=== PATIENT | female | born 1985 | race Caucasian/White ===

== ENCOUNTER 2022-04-22 10:31 | Outpatient (REF) | payer OTHER, SELFPAY ==
[2022-04-22 11:06] LABS: MANUAL DIFF FLAG NO
[2022-04-22 11:22] LABS: Basophils Percent Auto 0.7 % (0-2); Eosinophils Absolute Auto 0.1 X10*3/uL (0.0-0.4); Eosinophils Percent Auto 1.2 % (0-4); Hematocrit 42.5 % (37.0-47.0); Hemoglobin 14.2 g/dl (12.0-16.0); Imm Gran Abs Auto 0.01 X10*3/uL (0.00-0.03); Imm Gran Pct Auto 0.2 % (0.0-0.4); Mean Corpuscular HGB Conc 33.4 g/dl (31.0-35.0); Mean Corpuscular Hemoglobin 31.8 pg (27.0-33.0); Mean Corpuscular Volume 95.3 fL (80.0-98.0); Mean Platelet Volume 10.6 fL (9.4-12.3); Monocytes Absolute Auto 0.5 X10*3/uL (0.1-1.2); Monocytes Percent Auto 8.1 % (2-11); Neutrophils Absolute Auto 3.5 x10*3/uL (2.0-8.3); Neutrophils Percent Auto 56.8 % (45-73); Platelet Count 253 X10*3/uL (160-400); Red Blood Count 4.46 X10*6/uL (4.20-5.50); Red Cell Distribution Width 12.7 % (11.0-16.0); White Blood Count 6.1 X10*3/uL (4.8-10.8)
[2022-04-22 12:05] LABS: Estimated Average Glucose 85 mg/dL; Hemoglobin A1c % 4.6 %
[2022-04-22 12:10] LABS: Erythrocyte Sedimentation Rate 2 MM/HR (0-20)
[2022-04-22 13:15] LABS: Syphilis Screen Nonreactive (Nonreactive)
[2022-04-22 14:32] LABS: Alanine Aminotransferase 17 U/L (0-31); Albumin Level 4.1 g/dL (3.5-5.0); Alkaline Phosphatase 48 U/L (39-117); Anion Gap 13 (12-20); Aspartate Amino Transferase 21 U/L (5-31); Bilirubin Total 0.6 mg/dL (0.0-1.0); Blood Urea Nitrogen 10 mg/dL (9-16); C Reactive Protein 0.33 mg/dL (< or = 0.50); Calcium 9.1 mg/dL (8.4-10.2); Carbon Dioxide 23 mmol/L (22-29); Chloride 105 mmol/L (96-108); Estimated Glomerular Filt Rate > 60; Glucose Random 98 mg/dL (60-115); Potassium 4.2 mmol/L (3.3-5.1); Sodium 137 mmol/L (135-145); TSH reflex Free T4 0.82 uIU/mL (0.32-4.0); Total Protein 6.9 g/dL (6.5-8.0)
[2022-04-22 14:33] LABS: Appearance Urine Clear; Color Urine Yellow; Glucose Urine UA Negative (Negative); Leukocyte Esterase Urine Negative (Negative); Nitrite Urine Negative (Negative); Specific Gravity - Urine 1.015 (1.005-1.025); Urine Blood Negative (Negative); Urine Ketones Negative (Negative); Urine Protein Negative (Neg-Trace)
[2022-04-22 14:36] LABS: Bacteria Urine None Seen (None Seen); Hyaline Casts Urine 0-2 /LPF (0-2); Squamous Epithelial Cell Urine 0-2 /HPF (0-2)
[2022-04-22 15:05] LABS: Creatinine Urine 79.09 mg/dL; Total Protein Urine Random < 7 mg/dL (<12)
[2022-04-25 11:58] LABS: Complement C3 98 mg/dL (83-193)
[2022-04-25 13:59] LABS: Thyroglobulin Antibodies <1 IU/mL (< or = 1); Thyroid Peroxidase Antibodies 1 IU/mL (<9)
[2022-04-26 10:34] LABS: Anti Nuclear Antibody Screen POSITIVE (NEGATIVE)
[2022-04-26 12:45] LABS: Prot Elec - Alpha1 0.3 g/dL (0.2-0.3); Prot Elec - Alpha2 0.7 g/dL (0.5-0.9); Prot Elec - Beta 1 0.6 g/dL (0.4-0.6); Prot Elec - Beta 2 0.4 g/dL (0.2-0.5); Prot Elec - Total Protein 6.9 g/dL (6.1-8.1)
[2022-04-26 15:24] LABS: IgA 382 mg/dL (47-310); IgG 939 mg/dL (600-1640); IgM 158 mg/dL (50-300)
[2022-04-26 19:38] LABS: TS Negative Control Passed; TS Panel A 0; TS Panel B 0; TS Positive Control Passed; TSpotTB Negative (Negative)
[2022-04-27 05:34] LABS: HBS Num1 33.68 mIU/mL (0-7.99); HBc Num1 0.06 S/CO (0.00-0.79); Hepatitis A Antibody IgM 0.21 Index (0-0.79); Hepatitis B Core Antibody Nonreactive (Nonreactive); ~HepC Num1 0.14 S/CO (0.00-0.79); ~Hepatitis A Antibody IgM Nonreactive (Nonreactive); ~Hepatitis B Surface Antibody REACTIVE (Nonreactive); ~Hepatitis C Antibody Nonreactive (Nonreactive)
[2022-04-27 06:08] LABS: HBsAGNum1 0.24 S/CO (0.00-0.99); Hepatitis B Surface Antigen Negative (Negative)
[2022-04-27 09:54] LABS: Anti DNA DS Antibody 2 IU/mL; Antibody to SS-A Antigen <1.0 NEG AI (<1.0 NEG); Antibody to SS-B Antigen <1.0 NEG AI (<1.0 NEG); Myeloperoxidase Antibody <1.0 AI; Proteinase 3 PR3 Antibodies <1.0 AI; SM/Ribonucleoprotein Ab <1.0 NEG AI (<1.0 NEG); Smith Protein <1.0 NEG AI (<1.0 NEG)
[2022-04-27 12:13] LABS: Cardiolipin IgG Ab <2.0 GPL-U/mL; Cardiolipin IgM Ab 3.2 MPL-U/mL
[2022-04-28 12:52] LABS: Angiotensin Converting Enzyme 28.1 U/L (9-67)
[2022-04-28 14:14] LABS: Beta-2 Glycoprotein IgA <2.0 U/mL (<20.0); Beta-2 Glycoprotein IgG <2.0 U/mL (<20.0); Beta-2 Glycoprotein IgM 2.7 U/mL (<20.0)
[2022-04-29 06:38] LABS: PTT (LAC) Screen 30 sec (<=40)
== END 2022-04-22 10:32 | disposition home or self-care (01) ==
LOC: HO.10HDL 10:31
PROVIDERS: Visit Provider Student in an Organized Health Care Education/Training Program
DX: R76.8 Other specified abnormal immunological findings in serum (principal); H20.9 Unspecified iridocyclitis; R53.83 Other fatigue; Z11.7 Encounter for testing for latent tuberculosis infection; Z11.59 Encounter for screening for other viral diseases; Z13.1 Encounter for screening for diabetes mellitus
CPT/HCPCS: 36415; 80053; 81001; 82164; 82550; 82784; 83036; 84156; 84165; 84443; 85025; 85597; 85613; 85652; 85730; 86021; 86038; 86039; 86140; 86146; 86147; 86160; 86225; 86235; 86334; 86376; 86481; 86704; 86706; 86709; 86780; 86800; 86803; 87340

== ENCOUNTER → 2022-05-19 12:54 | Outpatient (BNVA) | payer OTHER, SELFPAY | PROVIDERS: Visit Provider Student in an Organized Health Care Education/Training Program | DX: Z13.89 Encounter for screening for other disorder (principal) ==

== ENCOUNTER 2022-09-29 08:38 | Outpatient (REF) | payer OTHER, SELFPAY ==
[2022-09-29 08:57] LABS: MANUAL DIFF FLAG NO
[2022-09-29 09:23] LABS: Basophils Percent Auto 0.7 % (0-2); Eosinophils Absolute Auto 0.2 X10*3/uL (0.0-0.4); Eosinophils Percent Auto 2.8 % (0-4); Hematocrit 41.6 % (37.0-47.0); Hemoglobin 14.1 g/dl (12.0-16.0); Imm Gran Abs Auto 0.02 X10*3/uL (0.00-0.03); Imm Gran Pct Auto 0.3 % (0.0-0.4); Lymphocytes Absolute Auto 2.2 X10*3/uL (1.2-4.9); Lymphocytes Percent Auto 36.6 % (20-40); Mean Corpuscular HGB Conc 33.9 g/dl (31.0-35.0); Mean Corpuscular Hemoglobin 32.2 pg (27.0-33.0); Mean Platelet Volume 10.3 fL (9.4-12.3); Monocytes Absolute Auto 0.5 X10*3/uL (0.1-1.2); Monocytes Percent Auto 7.7 % (2-11); Neutrophils Absolute Auto 3.2 x10*3/uL (2.0-8.3); Neutrophils Percent Auto 51.9 % (45-73); Platelet Count 236 X10*3/uL (160-400); Red Blood Count 4.38 X10*6/uL (4.20-5.50); Red Cell Distribution Width 12.4 % (11.0-16.0); White Blood Count 6.1 X10*3/uL (4.8-10.8)
[2022-09-29 10:03] LABS: Alanine Aminotransferase 23 U/L (0-31); Albumin Level 3.8 g/dL (3.5-5.0); Alkaline Phosphatase 40 U/L (39-117); Anion Gap 12 (12-20); Aspartate Amino Transferase 21 U/L (5-31); Bilirubin Total 0.7 mg/dL (0.0-1.0); Blood Urea Nitrogen 10 mg/dL (9-16); Calcium 9.3 mg/dL (8.4-10.2); Carbon Dioxide 25 mmol/L (22-29); Chloride 107 mmol/L (96-108); Estimated Glomerular Filt Rate > 60; Glucose Random 104 mg/dL (60-115); Potassium 4.7 mmol/L (3.3-5.1); Sodium 139 mmol/L (135-145); Total Protein 6.5 g/dL (6.5-8.0)
[2022-09-29 10:20] LABS: Erythrocyte Sedimentation Rate 2 MM/HR (0-20)
[2022-09-29 10:28] LABS: Appearance Urine Clear; Color Urine Yellow; Glucose Urine UA Negative (Negative); Leukocyte Esterase Urine Moderate (2+) (Negative); Nitrite Urine Negative (Negative); PH 6.5 (5.0-9.0); Specific Gravity - Urine 1.015 (1.005-1.025); UMIC TRIGGER UA YES; Urine Blood Negative (Negative); Urine Ketones Negative (Negative); Urine Protein Negative (Neg-Trace)
[2022-09-29 10:38] LABS: Bacteria Urine 1+ (None Seen); Hyaline Casts Urine 0-2 /LPF (0-2); RBC Urine 0-2 /HPF (0-2); WBC Urine 0-5 /HPF (0-5)
[2022-09-29 11:27] LABS: Creatinine Urine 81.97 mg/dL; Total Protein Urine Random < 7 mg/dL (<12)
[2022-10-04 21:58] LABS: Anti DNA DS Antibody 2 IU/mL
[2022-10-05 18:39] LABS: Complement C3 102 mg/dL (83-193)
== END 2022-09-29 08:39 | disposition home or self-care (01) ==
LOC: HO.LAB 08:38
PROVIDERS: Visit Provider Student in an Organized Health Care Education/Training Program
DX: M32.9 Systemic lupus erythematosus, unspecified (principal)
CPT/HCPCS: 36415; 80053; 81001; 84156; 85025; 85652; 86140; 86160; 86225

== ENCOUNTER 2022-10-11 15:20 | Outpatient (REF) | payer OTHER, SELFPAY ==
--- NOTE | ~2022-10-11 | US_ITS ---
EXAMINATION: US SOFT TISSUE NECK CLINICAL INFORMATION: Localized enlarged lymph nodes. COMPARISON: None available. TECHNIQUE: Ultrasound of the neck soft tissues is performed with high- frequency kowalski-scale imaging and color Doppler. FINDINGS: RIGHT NECK SOFT TISSUES: Scattered architecturally normal nodes are present. The nodes show normal fatty hilus, normal cortical thickness, and no cystic change or calcification. No abnormal color flow. The largest nodes are as follows: Level 1B: 1.3 x 0.6 x 1.4 cm. Normal tadeo architecture. Level 2: 2.0 x 0.7 x 1.6 cm. Abnormal tadeo architecture, with poor corticomedullary differentiation. Level 3: 2.0 x 0.6 x 1.6 cm. Abnormal tadeo architecture, with poor corticomedullary differentiation. Level 4: 2.6 x 0.4 x 1.2 cm. Normal tadeo architecture. LEFT NECK SOFT TISSUES: Scattered architecturally normal nodes are present. The nodes show normal fatty hilus, normal cortical thickness, and no cystic change or calcification. No abnormal color flow. The largest nodes are as follows: Level 2: 1.8 x 0.5 x 1.3 cm. Normal tadeo architecture. Level 3: 2.0 x 0.4 x 1.1 cm. Abnormal tadeo architecture, with poor corticomedullary differentiation. US/US soft tiss head and/or neck IMPRESSION: Multiple mildly enlarged bilateral cervical lymph nodes are seen, as detailed. Some show poor corticomedullary differentiation. These are nonspecific and may be reactive. They should be managed on a clinical basis. If of continued clinical concern, consider short-term follow-up ultrasound imaging in 3-6 months to ensure stability/regression.
== END 2022-10-11 15:21 | disposition home or self-care (01) ==
LOC: HO.HMGCX 15:20
PROVIDERS: PCP Nurse Practitioner Family; Visit Provider Student in an Organized Health Care Education/Training Program
DX: R59.0 Localized enlarged lymph nodes (principal)
CPT/HCPCS: 76536

== ENCOUNTER 2023-01-05 14:25 | Outpatient (REF) | payer OTHER, SELFPAY ==
--- NOTE | ~2023-01-05 | US_ITS ---
Ultrasound-guided biopsy of the enlarged cervical lymph nodes in the right side of the neck INDICATIONS: Persistent cervical adenopathy relatively unchanged compared to the previous ultrasound exam dated 10/11/2022 After informed and written consent was obtained an official timeout was performed immediately prior to the procedure. PROCEDURE: The skin was prepped and draped in usual fashion. 1% Xylocaine was used for local anesthetic. Under ultrasound guidance the enlarged cervical lymph node in the right paracervical region measuring 0.68 x 1.4 x 2.1 cm in size was biopsied utilizing a 25-gauge needle. 4 passes were obtained. The Specimens were analyzed by the pathology department and felt to be adequate for diagnostic purposes. US/US biopsy lymph node Impression: Ultrasound-guided biopsy of one of the lymph nodes in the right paracervical region
[2023-01-05] MEDS: Lidocaine HCl 1 % MPF 5 ML VIAL SUBCUT (16:11)
== END 2023-01-05 14:26 | disposition home or self-care (01) ==
LOC: HO.US 14:25
PROVIDERS: Radiology Vascular & Interventional Radiology; PCP Nurse Practitioner Family; Visit Provider Student in an Organized Health Care Education/Training Program
DX: R59.0 Localized enlarged lymph nodes (principal)
CPT/HCPCS: 36415; 38505; 76942; 88172; 88173; 88184; 88185

== ENCOUNTER → 2023-01-05 14:27 | Outpatient (BNV) | payer OTHER, SELFPAY | PROVIDERS: PCP Nurse Practitioner Family; Visit Provider Radiology Vascular & Interventional Radiology | DX: R59.0 Localized enlarged lymph nodes (principal) | CPT/HCPCS: 38505; 76942 ==

== ENCOUNTER 2023-01-19 09:19 | Outpatient (AMB) | payer OTHER, SELFPAY ==
[2023-01-19 09:21] VITALS: BP 122/64; PULSE 73; TEMP 36.6; O2SAT 97; BMI 24.2
--- NOTE | 2023-01-19 09:21 | A.OFFVIS_ITS ---
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 Accompanied by: Self / Same As Patient Allergies acetaminophen [From Vicodin] Adverse Reaction (Unknown, Verified 01/19/23 09:24) Rash hydrocodone [From Vicodin] Adverse Reaction (Unknown, Verified 01/19/23 09:24) Rash Medication List - Last Reconciled 01/19/23 by Nicolasa Marvin MD azelaic acid 15% topical bupropion HCl 150 mg PO QAM escitalopram oxalate 10 mg PO DAILY mecobalamin (vitamin B12) 1,000 mcg PO DAILY norethindrone ac-eth estradiol 1-20 mg-mcg (Junel) 1 tab PO DAILY sulfacetamide sodium-sulfur 10-5 % (w/w) topical trazodone 25 - 50 mg PO BEDTIME PRN HPI HPI Comments History of Present Illness Details 37-year-old female with positive JORDAN ret urns for follow-up. In September patient had palpable right neck lymph nodes, she had ultrasound-guided biopsy of a right cervical lymph nodes which showed a high CD4 to CD8 ratio without features of malignancy. Patient states that the lymph node continues to get bigger, she gets night sweats for a few days at a time and they self resolve, she gets intermittent painful canker sores. Initial history: This is a 36-year-old female with a past medical history of anxiety/depression presents for evaluation of a positive JORDAN 1-320. The condition started a few years ago when patient had an episode of iritis. At that time she was evaluated and had positive Lyme serology. She was started on doxycycline with significant improvement of her symptoms. She also gets eyedrops (neomycin +polymyxin + dexamethasone) with resolution of her iritis in a few days. Over the last 4 years patient has had multiple flares of fatigue, chills, arthralgias, lymphadenopathy, this would be associated with an attack of iritis. Repeated Lyme testing is positive and patient usually would get a course of doxycycline with improvement of her symptoms. She stated she has had about 8 attacks of iritis over the last 4 years. Last flare was in January of 2022. When she had another attack of iritis she also had other symptoms such as fatigue, joint pain. She also had herpes zoster affecting her right neck which resolved with antivirals. [facility] Medical History (Updated 01/19/23 @ 09:52 by Nicolasa Marvin MD) Multiple joint pain Vertigo Lyme disease Costal chondritis Insomnia Depressive disorder Cystic acne Anxiety Surgical History History of tonsillectomy No history of previous surgery Social History Household Members: Significant Other and Other Alcohol intake: current Alcohol intake frequency: a few times a week Current occupation: [employer] ENT Details: +ve mouth sores Card Reports no additional complaints Details: no froth in urine Musc Details: rib pain Lamin/Lymph Reports lymphadenopathy Physical Exam Vital Signs: Last Vital Signs Temp 97.9 F 01/19/23 09:21 Pulse 73 01/19/23 09:21 BP 122/64 01/19/23 09:21 Pulse Ox 97 01/19/23 09:21 BMI result Body Mass Index 24.2 Const General: cooperative, healthy appearing, comfortable and no acute distress Nutritional Appearance: average body habitus Orientation/consciousness: patient oriented x3 Limitations: no limitations HEENT Head: Yes normocephalic and Yes atraumatic Neck Other: Palpable bilateral cervical lymph nodes Resp Effort & Inspection: normal respiratory effort and able to speak in complete sentences Skin Other: Rosacea on face Neuro General: patient oriented x3 Extrem Other: No active synovitis Normal nailfold capillaroscopy Assessment & Plan Assessment & Plan (1) JORDAN positive: Code(s): R76.8 - Other specified abnormal immunological findings in serum Plan: This is a 37-year-old female who presents for evaluation of 4 year history of recurrent episodes of keratitis fatigue, skin rashes, joint pain, chills, night sweats, Labs showed positive JORDAN 1-320 and 1-80 when repeated. These episodes were attributed to Lyme disease as her Lyme serology seems to be always positive.? Patient would get doxycycline courses with improvement.? Keratitis resolves with a (steroid plus antibiotic eyedrops)? In September patient had a palpable cervical lymph node, she had a lymph node biopsy which showed a high CD4 to CD8 ratio which can be a reactive lymph node but cannot exclude lymphomas Will refer patient to Hematology/Oncology given lymphadenopathy and night sweats. Plan I spent 15 minutes reviewing patient's chart, evaluating patient, ordering diagnostic workup, counseling patient and documenting in the chart Orders: Orders XR chest 2V Today R59.0 - Localized enlarged lymph nodes Referrals Hematology & Oncology Referral R59.0 - Localized enlarged lymph nodes Coding Level of Care Code Est Pt Level 3 (75060) Diagnoses JORDAN positive R76.8
== END 2023-01-19 09:45 | disposition home or self-care (01) ==
PROVIDERS: PCP Nurse Practitioner Family; Visit Provider Student in an Organized Health Care Education/Training Program
DX: R76.8 Other specified abnormal immunological findings in serum (principal)
CPT/HCPCS: 99213

== ENCOUNTER → 2023-01-19 09:19 | Outpatient (BNVA) | payer OTHER, SELFPAY | PROVIDERS: PCP Nurse Practitioner Family; Visit Provider Student in an Organized Health Care Education/Training Program ==

== ENCOUNTER → 2023-05-31 09:20 | Outpatient (BNV) | payer OTHER, SELFPAY | PROVIDERS: PCP Nurse Practitioner Family; Visit Provider Internal Medicine | DX: R59.0 Localized enlarged lymph nodes (principal) | CPT/HCPCS: 99213 ==

== ENCOUNTER 2023-08-15 15:52 | Outpatient (AMB) | payer OTHER, SELFPAY ==
[2023-08-15 15:55] VITALS: BP 122/64; PULSE 69; O2SAT 97; BMI 25.1
--- NOTE | 2023-08-15 15:55 | A.OFFVIS_ITS ---
Intake Vital Signs 08/15/23 15:55 Height 5 ft 7 in Weight 160 lb 4.417 oz BMI 25.1 BP 122/64 Blood Pressure Location Rt brachial Position Sitting Pulse 69 Pulse Source Pulse Oximeter Pulse Oximetry (%) 97 Oxygen Delivery Method Room Air Intake Visit Reasons: JORDAN +ve/lm Intake Note: Patient last seen 01/19/23 presents today for follow up. 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[facility] [employer] Required: No Accompanied by: Self / Same As Patient Allergies acetaminophen [From Vicodin] Adverse Reaction (Unknown, Verified 08/15/23 15:56) Rash hydrocodone [From Vicodin] Adverse Reaction (Unknown, Verified 08/15/23 15:56) Rash Medication List - Last Reconciled 08/15/23 by Nicolasa Marvin MD azelaic acid 15% 15 ea topical DAILY bupropion HCl XL 150 mg PO QAM doxycycline hyclate 20 mg PO BID escitalopram oxalate 10 mg PO BID norethindrone ac-eth estradiol 1-20 mg-mcg (Junel) 1 tab PO DAILY sulfacetamide sodium-sulfur 10-5 % (w/w) 10 grams topical DAILY trazodone 25 - 50 mg PO BEDTIME PRN HPI HPI Comments History of Present Illness Details 37-year-old female with positive JORDAN ret urns for follow-up. Patient states that she has been doing fairly well overall. She states that she had Dougie episode of abrupt onset of chest pain. She was prescribed prednisone. She took for 3 days with rapid resolution of symptoms. She was recently evaluated by an cafe worker and was diagnosed with ocular rosacea. She has been doing fairly well otherwise Initial history: This is a 36-year-old female with a past medical history of anxiety/depression presents for evaluation of a positive JORDAN 1-320. The condition started a few years ago when patient had an episode of iritis. At that time she was evaluated and had positive Lyme serology. She was started on doxycycline with significant improvement of her symptoms. She also gets eyedrops (neomycin +polymyxin + dexamethasone) with resolution of her iritis in a few days. Over the last 4 years patient has had multiple flares of fatigue, chills, arthralgias, lymphadenopathy, this would be associated with an attack of iritis. Repeated Lyme testing is positive and patient usually would get a course of doxycycline with improvement of her symptoms. She stated she has had about 8 attacks of iritis over the last 4 years. Last flare was in January of 2022. When she had another attack of iritis she also had other symptoms such as fatigue, joint pain. She also had herpes zoster affecting her right neck which resolved with antivirals. [facility] Medical History Multiple joint pain Vertigo Lyme disease Costal chondritis Insomnia Depressive disorder Cystic acne Anxiety Surgical History History of tonsillectomy No history of previous surgery Family History Maternal Aunt Breast cancer Father Prostate cancer Social History Household Members: Significant Other and Other Alcohol intake: current Alcohol intake frequency: a few times a week Patient Tobacco Use Status: Former Tobacco user service: No Current occupational status: employed Current occupation: [employer] Reports arthralgias Physical Exam Vital Signs: Last Vital Signs Pulse 69 08/15/23 15:55 BP 122/64 08/15/23 15:55 Pulse Ox 97 08/15/23 15:55 Oxygen Delivery Method Room Air 08/15/23 15:55 BMI result Body Mass Index 25.1 Const General: cooperative, healthy appearing, comfortable and no acute distress Nutritional Appearance: average body habitus Orientation/consciousness: patient oriented x3 Limitations: no limitations HEENT Head: Yes normocephalic and Yes atraumatic Resp Effort & Inspection: normal respiratory effort and able to speak in complete sentences Skin Other: Rosacea on face Neuro General: patient oriented x3 Extrem Other: No active synovitis Normal nailfold capillaroscopy Assessment & Plan Assessment & Plan (1) JORDAN positive: Code(s): R76.8 - Other specified abnormal immunological findings in serum Plan: This is a 37-year-old female who presents for evaluation of 4 year history of recurrent episodes of keratitis fatigue, skin rashes, joint pain, chills, night sweats, Labs showed positive JORDAN 1-320 and 1-80 when repeated. These episodes were attributed to Lyme disease as her Lyme serology seems to be always positive.? Patient would get doxycycline courses with improvement.? Keratitis resolves with a (steroid plus antibiotic eyedrops)? Patient was recently diagnosed with ocular rosacea In 2022 patient had cervical lymphadenopathy. Biopsy was inconclusive. She was evaluated by heme/Onc and the results were nonspecific and no further management was needed Patient states that she gets intermittent episodes of joint pain, sometimes it affects her chest. These occur about once every 6 months, last time this occurred she took prednisone with rapid resolution. We discussed potentially starting hydroxychloroquine for UCTD. Patient would like to hold off. This point, will prescribe prednisone mg tablets. Can take 1-2 tablets as needed for flare-ups. Advised patient to keep a log of her flare-ups Labs before next visit in 6 months Plan I spent 25 minutes reviewing patient's chart, evaluating patient, ordering diagnostic workup, counseling patient and documenting in the chart Orders: Orders Anti DNA DS Antibody 6 Months M32.9 - Systemic lupus erythematosus, unspecified Complement C3 6 Months M32.9 - Systemic lupus erythematosus, unspecified Complement C4 6 Months M32.9 - Systemic lupus erythematosus, unspecified Protein Creatinine Ratio, Ur 6 Months M32.9 - Systemic lupus erythematosus, unspecified UA w Microscopic 6 Months M32.9 - Systemic lupus erythematosus, unspecified Immunofixation Pnl, Serum 6 Months M32.9 - Systemic lupus erythematosus, u nspecified Protein Electrophoresis, Serum 6 Months M32.9 - Systemic lupus erythematosus, unspecified DNA Double Stranded-Crithidia 6 Months M32.9 - Systemic lupus erythematosus, unspecified Erythrocyte Sedimentation Rate 6 Months M32.9 - Systemic lupus erythematosus, unspecified Complete Blood Count Auto Diff 6 Months M32.9 - Systemic lupus erythematosus, unspecified Comprehensive Met. Panel 6 Months M32.9 - Systemic lupus erythematosus, unspecified Medications: New prednisone 10 mg PO DAILY PRN 30 tabs 0RF joint pain Coding Level of Care Code Est Pt Level 4 (98627) Diagnoses JORDAN positive R76.8
== END 2023-08-15 16:21 | disposition home or self-care (01) ==
PROVIDERS: PCP Nurse Practitioner Family; Visit Provider Student in an Organized Health Care Education/Training Program
DX: R76.8 Other specified abnormal immunological findings in serum (principal)
CPT/HCPCS: 99214

== ENCOUNTER → 2023-08-15 15:52 | Outpatient (BNVA) | payer OTHER, SELFPAY | PROVIDERS: PCP Nurse Practitioner Family; Visit Provider Student in an Organized Health Care Education/Training Program ==

== ENCOUNTER 2024-02-02 07:17 | Outpatient (REF) | payer OTHER, SELFPAY ==
--- NOTE | ~2024-02-02 | XR_ITS ---
EXAMINATION: XR STERNOCLAVICULAR JOINTS CLINICAL INFORMATION: R07.9 - Chest pain, unspecified COMPARISON: None available. TECHNIQUE: AP and oblique views of the sternoclavicular joints. FINDINGS: Alignment of the sternoclavicular joints is normal and symmetric. The clavicle is intact. No fracture. Bones and soft tissues are normal. XR/XR sternoclavicular joint BI IMPRESSION: Normal sternoclavicular joints. Electronically signed by: Yovanny Jackson MD 04/11/2024 12:50 PM EST
== END 2024-02-02 07:18 | disposition home or self-care (01) ==
LOC: HO.XRAY 07:17
PROVIDERS: PCP Nurse Practitioner Family; Visit Provider Student in an Organized Health Care Education/Training Program
DX: R07.9 Chest pain, unspecified (principal)
CPT/HCPCS: 71130

== ENCOUNTER → 2024-02-02 07:22 | Outpatient (BNV) | payer OTHER, SELFPAY | PROVIDERS: PCP Nurse Practitioner Family; Visit Provider Radiology Diagnostic Radiology | DX: R07.9 Chest pain, unspecified (principal) | CPT/HCPCS: 71130 ==

== ENCOUNTER 2024-02-05 14:56 | Outpatient (REF) | payer OTHER, SELFPAY ==
[2024-02-05 15:10] LABS: MANUAL DIFF FLAG NO
[2024-02-05 15:32] LABS: Basophils Percent Auto 0.3 % (0-2); Eosinophils Absolute Auto 0.1 X10*3/uL (0.0-0.4); Eosinophils Percent Auto 0.7 % (0-4); Hematocrit 39.5 % (37.0-47.0); Hemoglobin 13.7 g/dl (12.0-16.0); Imm Gran Abs Auto 0.06 X10*3/uL (0.00-0.03); Imm Gran Pct Auto 0.5 % (0.0-0.4); Lymphocytes Absolute Auto 3.5 X10*3/uL (1.2-4.9); Lymphocytes Percent Auto 28.3 % (20-40); Mean Corpuscular HGB Conc 34.7 g/dl (31.0-35.0); Mean Corpuscular Hemoglobin 32.4 pg (27.0-33.0); Mean Corpuscular Volume 93.4 fL (80.0-98.0); Mean Platelet Volume 9.9 fL (9.4-12.3); Monocytes Absolute Auto 0.9 X10*3/uL (0.1-1.2); Monocytes Percent Auto 7.4 % (2-11); Neutrophils Absolute Auto 7.7 x10*3/uL (2.0-8.3); Neutrophils Percent Auto 62.8 % (45-73); Platelet Count 300 X10*3/uL (160-400); Red Blood Count 4.23 X10*6/uL (4.20-5.50); Red Cell Distribution Width 12.3 % (11.0-16.0); White Blood Count 12.4 X10*3/uL (4.8-10.8)
[2024-02-05 15:49] LABS: Appearance Urine Clear; Color Urine Yellow; Glucose Urine UA Negative (Negative); Leukocyte Esterase Urine Trace (Negative); Nitrite Urine Negative (Negative); Specific Gravity - Urine 1.015 (1.005-1.025); UMIC TRIGGER UA YES; Urine Blood Negative (Negative); Urine Ketones Negative (Negative); Urine Protein Negative (Neg-Trace)
[2024-02-05 15:53] LABS: Bacteria Urine None Seen (None Seen); Hyaline Casts Urine 0-2 /LPF (0-2); RBC Urine 0-2 /HPF (0-2); Squamous Epithelial Cell Urine 0-2 /HPF (0-2); WBC Urine 0-5 /HPF (0-5)
[2024-02-05 15:54] LABS: Alanine Aminotransferase 16 U/L (0-31); Albumin Level 3.9 g/dL (3.5-5.0); Alkaline Phosphatase 62 U/L (39-117); Anion Gap 13 (12-20); Aspartate Amino Transferase 17 U/L (5-31); Bilirubin Total 0.4 mg/dL (0.0-1.0); Blood Urea Nitrogen 17 mg/dL (9-16); Calcium 9.3 mg/dL (8.4-10.2); Carbon Dioxide 25 mmol/L (22-29); Chloride 105 mmol/L (96-108); Estimated Glomerular Filt Rate > 60; Glucose Random 94 mg/dL (60-115); Sodium 139 mmol/L (135-145); Total Protein 7.1 g/dL (6.5-8.0)
[2024-02-05 16:11] LABS: Creatinine Urine 68.56 mg/dL; Total Protein Urine Random < 7 mg/dL (<12)
[2024-02-05 16:13] LABS: Erythrocyte Sedimentation Rate 10 MM/HR (0-20)
[2024-02-06 15:38] LABS: Complement C3 110 mg/dL (83-193)
[2024-02-06 20:14] LABS: Anti DNA DS Antibody 1 IU/mL
[2024-02-07 12:28] LABS: Prot Elec - Albumin 3.9 g/dL (3.8-4.8); Prot Elec - Alpha1 0.3 g/dL (0.2-0.3); Prot Elec - Alpha2 0.8 g/dL (0.5-0.9); Prot Elec - Beta 1 0.5 g/dL (0.4-0.6); Prot Elec - Beta 2 0.4 g/dL (0.2-0.5); Prot Elec - Total Protein 6.8 g/dL (6.1-8.1)
[2024-02-07 21:58] LABS: IgA 419 mg/dL (47-310); IgG 1019 mg/dL (600-1640); IgM 165 mg/dL (50-300)
[2024-02-10 05:19] LABS: DNAds, Crithidia Antibody Negative (Negative)
== END 2024-02-05 14:57 | disposition home or self-care (01) ==
LOC: HO.LAB 14:56
PROVIDERS: PCP Nurse Practitioner Family; Visit Provider Student in an Organized Health Care Education/Training Program
DX: M32.9 Systemic lupus erythematosus, unspecified (principal)
CPT/HCPCS: 36415; 80053; 81001; 82570; 82784; 84156; 84165; 85025; 85652; 86160; 86225; 86255; 86334

== ENCOUNTER 2024-02-14 09:51 | Outpatient (AMB) | payer OTHER, SELFPAY ==
--- NOTE | 2024-02-14 09:53 | MHC.OFFVIS ---
Vital Signs 02/14/24 09:55 Height 5 ft 7 in Weight 154 lb 8.705 oz BMI 24.2 BP 100/72 Blood Pressure Location Rt brachial Position Sitting Pulse 69 Pulse Source Pulse Oximeter Pulse Oximetry (%) 99 Oxygen Delivery Method Room Air Intake Visit Reasons: UCTD/LM Intake Note: Patient presents for UCTD. Allergies acetaminophen [From Vicodin] Adverse Reaction (Unknown, Verified 02/14/24 09:55) Rash hydrocodone [From Vicodin] Adverse Reaction (Unknown, Verified 02/14/24 09:55) Rash Medication List - Last Reconciled 02/14/24 by Nicolasa Marvin MD azelaic acid 15% 15 ea topical DAILY bupropion HCl XL 150 mg PO QAM doxycycline hyclate 20 mg PO BID escitalopram oxalate 10 mg PO BID hydroxychloroquine Take 2 tabs daily x5 days a week and 1 tab daily x2 days a week norethindrone ac-eth estradiol 1-20 mg-mcg (June) 1 tab PO DAILY prednisone Take 3 tabs daily for 3 days, 2 tabs daily for 3 days then 1 tab daily for 5 days then stop Keep additional tabs to use as needed sulfacetamide sodium-sulfur 10-5 % (w/w) 10 grams topical DAILY trazodone 25 - 50 mg PO BEDTIME PRN HPI Comments Details: 38-year-old female with positive JORDAN returns for follow-up. Patient states that she had a flare-up of her eye condition as well as chest pains and night sweats for about a week back in September, she took ibuprofen 600 mg t.i.d. with resolution. She states that she was in [facility] last month and she had a cold followed by a flare-up of her condition, she was having eye inflammation, she did not have her eyedrops and she saw an eye doctor there, she was prescribed eyedrops with improvement, at that time she was also having chest pains, back pain, night sweats. He was taking NSAIDs without much improvement, when she came [place] the [place] she started taking prednisone 10 mg once daily about a week without much improvement. She continues to have the same symptoms Initial history: This is a 36-year-old female with a past medical history of anxiety/depression presents for evaluation of a positive JORDAN 1-320. The condition started a few years ago when patient had an episode of iritis. At that time she was evaluated and had positive Lyme serology. She was started on doxycycline with significant improvement of her symptoms. She also gets eyedrops (neomycin +polymyxin + dexamethasone) with resolution of her iritis in a few days. Over the last 4 years patient has had multiple flares of fatigue, chills, arthralgias, lymphadenopathy, this would be associated with an attack of iritis. Repeated Lyme testing is positive and patient usually would get a course of doxycycline with improvement of her symptoms. She stated she has had about 8 attacks of iritis over the last 4 years. Last flare was in January of 2022. When she had another attack of iritis she also had other symptoms such as fatigue, joint pain. She also had herpes zoster affecting her right neck which resolved with antivirals. [facility] Medical History Multiple joint pain Vertigo Lyme disease Costal chondritis Insomnia Depressive disorder Cystic acne Anxiety Surgical History History of tonsillectomy No history of previous surgery Family History Maternal Aunt Breast cancer Father Prostate cancer Social History Household Members: Significant Other and Other Alcohol intake: current Alcohol intake frequency: a few times a week Patient Tobacco Use Status: Former Tobacco user service: No Current occupational status: employed Current occupation: [employer] Systems Const Denies fever(s) and Reports night sweats Card Reports chest pain Physical Exam Vital Signs: Last Vital Signs Pulse 69 02/14/24 09:55 BP 100/72 02/14/24 09:55 Pulse Ox 99 02/14/24 09:55 Oxygen Delivery Method Room Air 02/14/24 09:55 BMI result Body Mass Index 24.2 Const General: cooperative, healthy appearing, comfortable and no acute distress Nutritional Appearance: average body habitus Orientation/consciousness: patient oriented x3 Limitations: no limitations HEENT Head: Yes normocephalic and Yes atraumatic Chest Other: Chest wall tenderness to palpate Resp Effort & Inspection: normal respiratory effort and able to speak in complete sentences Skin Other: Rosacea on face Neuro General: patient oriented x3 Extrem Other: No active synovitis Normal nailfold capillaroscopy Assessment & Plan Assessment & Plan (1) JORDAN positive: Code(s): R76.8 - Other specified abnormal immunological findings in serum Category: Medical Plan: This is a 38-year-old female who presents for evaluation of 4-5 year history of recurrent episodes of keratitis fatigue, skin rashes, joint pain, chills, night sweats, Labs showed positive JORDAN 1-320 and 1-80 when repeated. These episodes were attributed to Lyme disease as her Lyme serology seems to be always positive.? Patient would get doxycycline courses with improvement.? Keratitis resolves with a (steroid plus antibiotic eyedrops)? She has ocular and facial rosacea In 2022 patient had cervical lymphadenopathy. Biopsy was inconclusive. She was evaluated by heme/Onc and the results were nonspecific and no further management was needed Patient states that she gets intermittent episodes of joint pain, sometimes it affects her chest. These occur about once every 6 months. She is recovering from a flare-up, this time she has chest pain and back pain. She has chest pain with deep breath She was taking prednisone 10 mg daily for 1 week without improvement. Possible mild pleuro- pericarditis Advised patient to increase her prednisone to 30 mg daily for 3 days, 20 mg daily for 2 days and 10 mg daily for 5 days then stop Start hydroxychloroquine 200 mg Twice daily x5 days a week and 200 mg daily x2 days a week Check a 2D echo Follow-up in 3 months (2) Long-term use of hydroxychloroquine: Code(s): Z79.899 - Other nursing home (current) drug therapy Category: Medical Plan: Discussed risk of retinopathy associated with hydroxychloroquine. 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
[2024-02-14 09:55] VITALS: BP 100/72; PULSE 69; O2SAT 99; BMI 24.2
== END 2024-02-14 11:26 | disposition home or self-care (01) ==
PROVIDERS: PCP Nurse Practitioner Family; Referring Provider Nurse Practitioner Family; Visit Provider Student in an Organized Health Care Education/Training Program
DX: R76.8 Other specified abnormal immunological findings in serum (principal); Z79.899 Other long term (current) drug therapy
CPT/HCPCS: 99214

== ENCOUNTER → 2024-02-14 09:51 | Outpatient (REF) | payer OTHER, SELFPAY ==
--- NOTE | 2024-02-14 10:37 | ECG_ITS ---
Test Reason : Z79.899 Blood Pressure : / mmHG Vent. Rate : 055 BPM Atrial Rate : 055 BPM P-R Int : 166 ms QRS Dur : 080 ms QT Int : 436 ms P-R-T Axes : 008 066 031 degrees QTc Int : 417 ms Sinus bradycardia Otherwise normal ECG No previous ECGs available Referred By: Nicolasa Marvin Electronically Signed By:KAREN ENGLE MD
== END ==
LOC: HO.CARD 09:51
PROVIDERS: PCP Nurse Practitioner Family; Referring Provider Nurse Practitioner Family; Visit Provider Student in an Organized Health Care Education/Training Program
DX: Z79.899 Other long term (current) drug therapy (principal)
CPT/HCPCS: 93005

== ENCOUNTER → 2024-02-14 10:37 | Outpatient (BNV) | payer OTHER, SELFPAY | PROVIDERS: PCP Nurse Practitioner Family; Referring Provider Nurse Practitioner Family; Visit Provider Internal Medicine Cardiovascular Disease | DX: R00.1 Bradycardia, unspecified (principal) | CPT/HCPCS: 93010 ==

== ENCOUNTER → 2024-02-20 08:11 | Outpatient (REF) | payer OTHER, SELFPAY ==
--- NOTE | 2024-02-20 08:15 | CA_ITS ---
Transthoracic Echocardiogram Patient (Last, First, Middle): Rhiannon Bhakta B Gender: Female Date of : 1985 Age: 38 Procedure Date: 02/20/2024 Procedure Type: Transthoracic Echocardiogram Location: OP Height: 170.18 cm Weight: 68.04 kg BSA: 1.79 m2 Heart Rate: bpm BP: 110 / 76 mmHg Supervisor Felting: OLGA Referring MD: Nicolasa Marvin MD Symptoms: R07.9 - Chest pain, unspecified Study Quality: Adequate ECG Rhythm: Sinus Conclusions: - The left ventricular systolic function is normal. The calculated ejection fraction is 64% by biplane method. - No obvious valvular pathology seen on this study. Findings Left Ventricle Normal left ventricular cavity size. There is normal left ventricular wall thickness. The left ventricular systolic function is normal. The calculated ejection fraction is 64% by biplane method. There is no evidence of regional wall motion abnormalities. Diastolic function is normal for age. Right Ventricle Mildly increased right ventricular cavity size. There is normal right ventricular systolic function. Atria Both atria are normal in size. Aortic Valve There is a normal trileaflet aortic valve. There is no aortic valve stenosis. There is no aortic valve regurgitation. Mitral Valve The mitral valve appears normal. There is trace mitral valve regurgitation. There is no mitral valve stenosis. Pulmonic Valve The pulmonic valve is likely normal. Tricuspid Valve Normal tricuspid valve structure. There is mild tricuspid valve regurgitation. There is no evidence of pulmonary hypertension. Great Vessels The asc aorta is normal in size. Venous The inferior vena cava is normal in size and collapses greater than 50% with inspiration. Pericardium/Pleural There is no evidence of pericardial effusion. Prior Study Comparison No prior study available for comparison. Recommendations, Care & Conclusions No obvious valvular pathology seen on this study. Measurements 2D Linear Measurements IVSd: 0.92 0.6-0.9/0.6-1.0 cm LVIDd: 4.48 3.9-5.3/4.2-5.9 cm LVIDd Index: 2.50 2.4-3.2/2.2-3.1 cm/m2 LVIDs: 2.62 2.0-3.6 cm LVPWd: 0.79 0.7-1.1 cm LA Diam: 3.20 2.7-3.8/3.0-4.0 cm LAIDs Index: 1.79 1.5-2.3 cm/m2 LV Mass: 153.27 67-162/88-224 g LV Mass Index: 85.63 43-95/49-115 g/m2 LVOT Diam: 2.00 3.0+(-)1.3 cm 2D Systolic Function EF 4C: 68.00 >55% EF 2C: 63.00 >55% EF BiP: 64.30 >55% Mitral Valve MV Pk E: 0.88 MV PK A: 0.64 MV Decel Time: 180.00 E/A: 1.40 E'Lateral: 9.03 E'Medial: 5.98 E/E' Med: 14.80 E/E' Lat: 9.80 PHT: 53.00 MVA PHT: 4.15 Decel Erath: 4.89 Aortic Valve AoV Pk Logan: 1.50 AoV Mn Logan: 0.95 AoV VTI: 0.32 AoV Pk Grad: 9.00 Aov Mn Grad: 4.00 ERIC Cont.VTI: 2.32 LVOT LVOT Pk Logan: 1.04 LVOT Mn Logan: 0.67 LVOT VTI: 0.24 LVOT Pk Grad: 4.00 LVOT Mn Grad: 2.00 LVOT Diam: 2.00 LVOT Area: 3.14 Diastolic Function MV Pk E: 0.88 MV Pk A: 0.64 E/A: 1.40 E'Medial: 5.98 E/E' Med: 14.80 E' Laterial: 9.03 E/E' Lat: 9.80 Right Ventricle TAPSE (mm): 34.20 TVS' Logan: 12.80 Tricuspid Valve TR Pk Logan: 1.94 TR Pk Grad: 15.00 RA Press: 8.00 RVSP: 23.00 Great Vessels Aorta Sinus of Valsalva: 2.80 2.0-3.[address] Ridge: 2.31 1.7-3.4 cm Ao Asc: 2.80 2.1-3.4 cm Updated in Other Vendor System with Status of Final Arpit Vega MD electronically signed on 02/20/2024 4:18:44 PM with status of Final
== END ==
LOC: HO.CARD 08:11
PROVIDERS: PCP Nurse Practitioner Family; Visit Provider Student in an Organized Health Care Education/Training Program
DX: R07.9 Chest pain, unspecified (principal)
CPT/HCPCS: 93306

== ENCOUNTER → 2024-02-20 08:15 | Outpatient (BNV) | payer OTHER, SELFPAY | PROVIDERS: PCP Nurse Practitioner Family; Visit Provider Internal Medicine | DX: I36.1 Nonrheumatic tricuspid (valve) insufficiency (principal) | CPT/HCPCS: 93306 ==

== ENCOUNTER → 2024-09-02 08:44 | Outpatient (REF) | payer OTHER, SELFPAY ==
--- NOTE | 2024-09-02 08:47 | ECG_ITS ---
Test Reason : [facility] RX THERAPY Blood Pressure : */* mmHG Vent. Rate : 55 BPM Atrial Rate : 55 BPM P-R Int : 184 ms QRS Dur : 82 ms QT Int : 472 ms P-R-T Axes : 25 71 42 degrees QTcB Int : 451 ms Sinus bradycardia with sinus arrhythmia Otherwise normal ECG When compared with ECG of 14-Feb-2024 10:37, No significant change was found Referred By: Nicolasa Marvin Electronically Signed By: Manolo Boone
== END ==
LOC: HO.CARD 08:44
PROVIDERS: PCP Nurse Practitioner Family; Visit Provider Student in an Organized Health Care Education/Training Program
DX: Z79.899 Other long term (current) drug therapy (principal)
CPT/HCPCS: 93005

== ENCOUNTER → 2024-09-02 08:47 | Outpatient (BNV) | payer OTHER, SELFPAY | PROVIDERS: PCP Nurse Practitioner Family; Visit Provider Internal Medicine Cardiovascular Disease | DX: I49.9 Cardiac arrhythmia, unspecified (principal); R00.1 Bradycardia, unspecified | CPT/HCPCS: 93010 ==

== ENCOUNTER 2024-11-07 09:15 | Outpatient (REF) | payer OTHER, SELFPAY ==
[2024-11-07 09:38] LABS: Baso%MD 0.7 %; Eos%MD 2.0 %; Hematocrit 38.2 % (37.0-47.0); Hemoglobin 13.4 g/dl (12.0-16.0); IG%MD 0.3 %; Lymph%MD 39.6 %; Mean Corpuscular HGB Conc 35.1 g/dl (31.0-35.0); Mean Corpuscular Hemoglobin 32.0 pg (27.0-33.0); Mean Corpuscular Volume 91.2 fL (80.0-98.0); Mono%MD 9.4 %; NRBC Abs Auto 0.000 X10*3/uL (0.0-0.012); NRBC Pct Auto 0.0 /100WBC (0.0-0.2); Neut%MD 48.0 %; Platelet Count 255 X10*3/uL (160-400); Red Blood Count 4.19 X10*6/uL (4.20-5.50); White Blood Count 5.9 X10*3/uL (4.8-10.8)
[2024-11-07 10:07] LABS: Alanine Aminotransferase 23 U/L (0-31); Aspartate Amino Transferase 33 U/L (5-31); Estimated Glomerular Filt Rate > 60
[2024-11-07 11:26] LABS: Atypical Lymph Absolute Manual 0.2 x10*3/uL; Atypical Lymphs Percent Manual 3 % (0-6); Band Neutrophils Percent 1 % (3-5); Lymphocytes Absolute Manual 2.4 X10*3/uL (1.2-4.9); Lymphocytes Percent Manual 41 % (20-40); Monocytes Absolute Manual 0.4 X10*3/uL (0.1-1.2); Monocytes Percent Manual 6 % (2-11); Neutrophils Absolute Manual 3.0 X10*3/uL (2.0-8.3); Neutrophils Percent Manual 49 % (45-73)
[2024-11-07 11:28] LABS: Large Platelet PRESENT; RBC Morphology NOTED; Tear Drop Cells 1+ (0-2) /OIF
== END 2024-11-07 09:16 | disposition home or self-care (01) ==
LOC: HO.LAB 09:15
PROVIDERS: PCP Nurse Practitioner Family; Visit Provider Internal Medicine Rheumatology
DX: M32.9 Systemic lupus erythematosus, unspecified (principal)
CPT/HCPCS: 36415; 82565; 84450; 84460; 85007; 85027; 85652; 86140

== ENCOUNTER 2025-02-11 09:58 | Outpatient (AMB) | payer OTHER, SELFPAY ==
--- NOTE | 2025-02-11 10:02 | MHC.OFFVIS ---
Vital Signs 02/11/25 10:04 Height 5 ft 7 in Weight 153 lb 7.068 oz BMI 24.0 BP 110/70 Blood Pressure Location Rt brachial Position Sitting Pulse 71 Pulse Source Pulse Oximeter Pulse Oximetry (%) 100 Oxygen Delivery Method Room Air Intake Visit Reasons: JORDAN+ Intake Note: Patient presents for +JORDAN. Accompanied by: Self / Same As Patient Allergies acetaminophen (From Vicodin) Adverse Reaction (Unknown, Verified 02/11/25 10:03) Rash hydrocodone (From Vicodin) Adverse Reaction (Unknown, Verified 02/11/25 10:03) Rash HPI HPI JORDAN+: Details: She took HCQ in August at the advice of her television news video editor because she was having episodes of kerattis involving both eyes every other weeks. She would use topical steroid for 2 days and then the episode would resolve. She had associated muscle pain, joint pain, fatigue and chest pain with flare of keratitis in September. She had another flare in January associated with fatigue, chest pain. and joint pain. Joint pain resolved in 4-5 days. The chest pain was also associated with upper back and neck pain that made her lose range of motion as she described it as seizing up. In the past she received prednisone from Dr. Marvin when she would have a flare involving joint pain. Since being on hydroxychloroquine the duration of episode of the flare has reduced as well as frequency. She also started Restasis in June for dry eyes. I have reviewed her ophthalmology notes from May and November. She has been diagnosed with dry eyes and has elevated intra-ocular pressures. Denies any new symptoms. Denies fevers, dyspnea, pleurisy, oral ulcers, rash, urinary symptoms, joint swelling, joint pain. She has had Raynaud's phenomenon for many years involving her fingertips and toes where they turn white when exposed to cold. Self resolves with warming. [facility] Medical History Multiple joint pain Vertigo Lyme disease Costal chondritis Insomnia Depressive disorder Cystic acne Anxiety Surgical History History of tonsillectomy No history of previous surgery Family History Maternal Aunt Breast cancer Father Prostate cancer Social History Household Members: Significant Other and Other Alcohol intake: current Alcohol intake frequency: a few times a week Patient Tobacco Use Status: Former Tobacco user service: No Current occupational status: employed Current occupation: [employer] Physical Exam Vital Signs: Last Vital Signs Pulse 71 02/11/25 10:04 BP 110/70 02/11/25 10:04 Pulse Ox 100 02/11/25 10:04 Oxygen Delivery Method Room Air 02/11/25 10:04 BMI result Body Mass Index 24.0 Const Other: General: Comfortable CVS: RRR Respiratory: clear to auscultation bilaterally. Good respiratory effort Skin: No lesions seen. No discoloration of fingertips or digital ulcers MSK: No tender joints. No synovitis. Normal range of motion of upper extremities and lower extremities. Assessment & Plan Assessment & Plan (1) Keratitis: Comment: Chronic with the associated joint pain, fatigue, chest/upper back and neck pain. Previously attributed to Lyme disease. She tested positive in the past for Lyme disease when she had recurrent symptoms. She is now treating episodes with topical steroid for 2 days with benefit. she has elevated intra-ocular pressures. At the advice of her television news video editor's, she started hydroxychloroquine in August prescribed by Dr. Marvin with benefit in reducing her flares from every other week to twice in the last 6 months and also reducing the burden of ocular steroid reducing risk of ocular comorbidities such as glaucoma and cataracts. We discuss that in her situation the benefits outweigh the risks of being on hydroxychloroquine. Hydroxychloroquine is not the typical treatment for keratitis but in the setting of chronic recurrent keratitis and demonstrated improvement in reducing flare, I will be continuing it. She has history of chronic dry eyes improved on Restasis. I am requesting thorough evaluation for ocular Sjogren syndrome. She has a history of positive JORDAN 1:320 with repeat 1:80. SSA/SSB antibody negative in 2021. Code(s): H16.9 - Unspecified keratitis Category: Medical Plan: Labs ordered including RF, SSA/SSB and inflammatory markers Ophthalmology follow-up for evaluation of keratoconjunctivitis sicca with Christopher's testing Continue hydroxychloroquine 400 mg daily for 5 days then 200 mg daily for 2 days I have requested that she have OCT exam with her next Ophthalmology evaluation. She had visual field testing this year. I have asked her to request her television news video editor send me communication after her next follow-up about her surveillance exam on hydroxychloroquine Labs for drug monitoring on high-risk medication ordered. Prior labs from November 2024 reviewed. Return to clinic in 3 months (2) Long-term use of hydroxychloroquine: Code(s): Z79.899 - Other terminal system operator (current) drug therapy Category: Medical Plan: See above (3) Dry eyes: Code(s): H04.123 - Dry eye syndrome of bilateral lacrimal glands Category: Medical Plan: See above (4) Joint pain: Code(s): M25.50 - Pain in unspecified joint Category: Medical Plan: See above (5) Raynauds phenomenon: Code(s): I73.00 - Raynaud's syndrome without gangrene Category: Medical Plan: We discussed conservative management Orders: Orders Sjogren's Antibodies Today H04.123 - Dry eye syndrome of bilateral lacrimal glands, I73.00 - Raynaud's syndrome without gangrene, M25.50 - Pain in unspecified joint, Z79.899 - Other terminal system operator (current) drug therapy Rheumatoid Factor Today H04.123 - Dry eye syndrome of bilateral lacrimal glands, I73.00 - Raynaud's syndrome without gangrene, M25.50 - Pain in unspecified joint, Z79.899 - Other terminal system operator (current) drug therapy Aspartate Amino Transferase Today Z79.899 - Other terminal system operator (current) drug therapy Creatinine Today Z79.899 - Other fci (current) drug therapy C Reactive Protein Today Z79.899 - Other fci (current) drug therapy Erythrocyte Sedimentation Rate Today Z79.899 - Other fci (current) drug therapy Cyclic Citrullinated Peptide Today M25.50 - Pain in unspecified joint Alanine Aminotransferase Today Z79.899 - Other terminal system operator (current) drug therapy Complete Blood Count Auto Diff Today Z79.899 - Other fci (current) drug therapy Medications: Changed From hydroxychloroquine Take 2 tabs daily x5 days a week and 1 tab daily x2 days a week 48 tabs 2RF To hydroxychloroquine 200 mg orally Take 2 tabs daily x5 days a week and 1 tab daily x2 days a week; 48 tabs 5RF Coding Level of Care Code Est Pt Level 4 (55228) Complex EM visit Add On G2211 Diagnoses Keratitis H16.9 Long-term use of hydroxychloroquine Z79.899 Dry eyes H04.123 Joint pain M25.50 Raynauds phenomenon I73.00
[2025-02-11 10:04] VITALS: BP 110/70; PULSE 71; O2SAT 100; BMI 24.0
== END 2025-02-11 10:53 | disposition home or self-care (01) ==
LOC: HO.RHES 09:59
PROVIDERS: PCP Nurse Practitioner Family; Visit Provider Internal Medicine Rheumatology
DX: H16.9 Unspecified keratitis (principal); Z79.899 Other long term (current) drug therapy; H04.123 Dry eye syndrome of bilateral lacrimal glands; M25.50 Pain in unspecified joint; I73.00 Raynaud's syndrome without gangrene
CPT/HCPCS: 99214; G2211

== ENCOUNTER 2025-02-11 09:58 | Outpatient (REF) | payer OTHER, SELFPAY ==
[2025-02-11 13:22] LABS: MANUAL DIFF FLAG NO
--- OUTSIDE RECORDS SUMMARY | 2025-02-11 13:27 | XMS_ITS | Encounter Summary ---
Author Organization [facility] Address [address] [facility] [address] [place] [id number] Phone Care Team Providers Care Bookbinder Apprentice Name Role Phone Raoul Gama DO Unavailable Lori De La Cruz MAINTENANCE ELECTRICIAN Unavailable [phone] Carmen Dwyer SENIOR MECHANICAL DESIGN ENGINEER Unavailable [phone] Ana Maria Keyes MD Unavailable [phone] Raoul Gama DO Primary Care Provider Josue Pahn MD Primary Care Provi [email or web address] Encounter Details Date Type Department Care Team (Late st Contact Info) Description 05/31/2017 Procedure Pass [address] [place] [address] Social History Tobacco Use Types Packs/Day Years Used Date Smoking Tobacco: Former Cigarettes Q uit: 05/18/2016 Smokeless Tobacco: Never Comments No Sex and Gender Information Value Date Recorded Sex Assigned at Not on file Legal Sex Female 9:16 PM EDT Gender Identity Not on file Sexual Orientation Not on file Occupation Industry Job Start Date Job End Date Not on file Not on file Not on file Not on file documented as of this encounter Last Filed Vital Signs Vital Sign Reading Time Taken Comments Blood Pressure - - Pulse - - Temperature - - Respiratory Rate - - Oxygen Saturation - - Inhaled Oxygen Concentration - - Weight 65.8 kg (145 lb) 05/31/2017 2:52 PM EST Height 170.2 cm (5' 7 ) 05/31/2017 2:52 PM EST Body Mass Index 22.71 05/31/2017 2:52 PM EST documented in this encounter Plan of Treatment Not on file documented as of this encounter Visit Diagnoses Not on filedocumented in this encounter Additional Health Concerns Infection Onset Date Last Indicated Resolved Time CoV-Risk 04/06/2020 04/06/2020 04/20/2020 1:24 AM EST documented as of this encounter Care Teams Bookbinder Apprentice Relationship Specialty Start Date End Date Raoul Gama DO [address] [place] [address] [address] [place] [address] [email or web address] PCP - General 05/11/17 07/16/23 Josue Phan MD [address] [place] [id number] PCP - General Family Medicine 07/17/23 Raoul Gama DO [address] [place] [address] [address] [place] [address] [email or web address] Historical LMR Provider 02/20/17 Lori De La Cruz CNP [address] [place] [id number] Historical LMR Provider 02/20/17 05/15/21 Carmen Dwyer, DEANNE [address] [place] [id number] Historical LMR Provider 02/20/17 Ana Maria Keyes MD [address] [place] [address] [email or web address] Historical LMR Provider 02/20/17 documented as of this encounter Additional Source Comments The information contained in this document represents components of the legal health record. It is not the complete legal health record.[facility]
--- OUTSIDE RECORDS SUMMARY | 2025-02-11 13:27 | XMS_ITS | Clinical Summary ---
Author Organization [facility] Address [address] [facility] [address] [place] [address] Phone Care Team Providers Care Cooker Tender Name Role Phone Raoul Gama DO Unavailable Carmen Dwyer BILINGUAL SOCIAL WORKER Unavailable [phone] Josue Phan MD Primary Care Provi riccardo Allergies No known active allergies Medications norethindrone-ethi nyl estradiol (,) 1-0.02 mg per tabletIndications: Encounter for surveillance of contraceptive pills Take 1 tablet by mouth daily. 84 tablet 5 0 Active busPIRone (BUSPAR) 7.5 MG tabletIndications: Anxiety state,Primary insomnia Take 1 tablet (7.5 mg total) by mouth 2 (two) times a day as needed. 60 tablet 11 1 Active Active Problems Problem Noted Date Diagnosed Date Anxiety state 12/10/2020 Assessment & Plan (12/10/2020 9:19 AM EDT): Donadl has anxiety and I refilled her BuSpar but at a lower dose-to be taken as directed. This should help. She will call if there is any other issues or concerns. She understands and agrees. Other acne 12/10/2020 Assessment & Plan (12/10/2020 9:19 AM EDT): Donald presents for issues with acne. I wrote a prescription for clindamycin gel- to be used as directed. I also put a referral to dermatology for consult. She will call if there is any other issues or concerns. She understands and agrees. Other fatigue 10/09/2019 Assessment & Plan (10/09/2019 11:51 AM EDT): A virtual visit was used during the COVID-[address] of an in-person visit. This real-time, interactive virtual clinical encounter was conducted using videoconferencing technology from clinic or home office. The patient participated in the visit from home/temporary residence or other location as specified below. Consent for virtual care, including informing the patient that insurance will be billed, and that in-person care is available in case of emergencies or as needed otherwise, was discussed at the time of scheduling. Pt participated in visit from home. Donald has been having fatigue as well as some muscle/joint aches that have been migrating. She is concerned that she might have Lyme again thus I ordered the repeat test today and also CBC with differential. She requested a referral to physical therapy and I okayed this-I wrote a referral for physical therapy today at her request. I informed her to call if things get worse. I informed her that if by next week the labs look normal and she is still having these issues that she should make an appointment and I will see her in the office. She understands and agrees. Primary insomnia 10/10/2018 Assessment & Plan (12/10/2020 9:19 AM EDT): I refilled Donald's BuSpar but at a lower-dose as this may be more tolerable for her system -to be taken as directed. Assessment & Plan (10/10/2018 4:00 PM EDT): Donald has issues with sleep and she was advised to stop the Buspar and to try amitriptyline -at night (after the flexeril has been completed). She will call if there is any other issues with this or if this is not helpful. She understands and agrees. Muscle tightness 10/10/2018 Assessment & Plan (10/10/2018 3:59 PM EDT): Donald has tightness of her cervical paraspinal musculature and she was advised to take the flexeril as directed at night and to not drive while on this. She will call if there is any other issues. She understands and agrees. Costochondritis 06/05/2018 Assessment & Plan (06/12/2018 2:43 PM EST): Donald presents with ongoing sternal pain originating about 6 weeks ago. I advised her to go for the above image study and I will update her with the results. She will continue to use heat as needed. She will see PT tomorrow. She will call if there is any other issues. Assessment & Plan (06/05/2018 9:14 AM EST): I diagnosed donald with costochondritis today in the office. I reviewed symptomatic treatment at home with Tylenol and heat. I also wrote a script for PT today in the office. I advised her to let pain be her guide with activity. She will call if this does not improve. She understands and agrees. Dysmenorrhea 02/05/2018 Assessment & Plan (03/26/2019 5:07 PM EST): Donald will continue with suppression of menses with ocps due to history of significant dysmenorrhea. She is aware of need to stop ocps if she resumes smoking, and is hopeful that she will be successful in continued smoking cessation. Assessment & Plan (02/05/2018 3:19 PM EDT): Donald will continue with suppression of menses via ocps due to history of significant dysmenorrhea. Depression 05/18/2017 Physical examination of employee 05/18/2017 Assessment & Plan (07/19/2017 1:58 PM EDT): Donald presents with FMLA paperwork to be filled out. This will be scanned into her record. Attempted return to work September 052017. Assessment & Plan (05/18/2017 2:14 PM EST): Donald has a post concussion syndrome. She notes that she will have paperwork sent to the office for me to fill out. 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 She will be seen by neurology and she will have a Ct scan done. Post concussion syndrome 05/18/2017 Assessment & Plan (07/19/2017 1:56 PM EDT): I filled out the [facility] paperwork today for another month and then on September 05 she will attempt to go back to work without any restrictions at her discretion. She will call if there is any issues. She will call if there is any other issues. Assessment & Plan (06/21/2017 3:34 PM EST): Donald still has issues with post concussion syndrome. 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 She notes improvement but slow improvement. She is being followed by Dr. Lee. She is also seeing a physical therapsit. She had and MRI recently and this was reassuring. She was given guidance regarding symptomatic management for the post concussion syndrome. She will call if the headache worsens. She will F/U in a month as needed. Assessment & Plan (05/18/2017 2:13 PM EST): Donald was diagnosed with a post concussion syndrome. She still has issues with headaches, fogginess, forgetfulness, and issues with blurry vision at times. I will have her go for a CT scan of the head. She was also set up with a neurology referral. She was given guidance regarding activity and her diagnosis. She will call if this gets worse. Immunizations Immunization Administration Dates Next Due Tdap 04/01/2015 Family History Medical History Relation Comments CV disease Father Hypertension Father Breast cancer Maternal Aunt Lung cancer Maternal Grandfather Lung cancer Maternal Grandmother Relation Status Comments Father Alive Maternal Aunt Alive Maternal Grandfather Maternal Grandmother Social History Tobacco Use Types Packs/Day Years Used Date Smoking Tobacco: Former Cigarettes 0.5 12.5 0 06/12/2006 - 12/06/2018 Smokeless Tobacco: Never Alcohol Use Standard Drinks/Week Comments Yes 14 (1 standard drink = 0.6 oz pu re alcohol) Education Answer Date Recorded Are you interested in more education? Not on timmy e 09/02/2022 Are you concerned about learning? Not on file 09/02/2022 No 09/02/2022 No 09/02/2022 Digital Access Answer Date Recorded No 10/03/2022 No 10/03/2022 Reliable internet access at home? Not on file 10/03/2022 Device with a working camera? Not on file Comments No Sex and Gender Information Value Date Recorded Sex Assigned at Not on file Legal Sex Female 9:16 PM EDT Gender Identity Not on file Sexual Orientation Not on file Occupation Industry Job Start Date Job End Date Not on file Not on file Not on file Not on file Last Filed Vital Signs Vital Sign Reading Time Taken Comments Blood Pressure 102/64 12/10/2020 8:38 AM EDT Pulse 65 12/10/2020 8:38 AM EDT Temperature 36.5 C (97.7 F) 12/10/2020 8:38 AM EDT Respiratory Rate 16 04/06/2020 12:48 PM EST Oxygen Saturation 98% 12/10/2020 8:38 AM EDT Inhaled Oxygen Concentration - - Weight 67.6 kg (149 lb) 12/10/2020 8:38 AM EDT Height 170.8 cm (5' 7.24 ) 12/10/2020 8:38 AM ED T Body Mass Index 23.17 12/10/2020 8:38 AM EDT Plan of Treatment Health Maintenance Due Date Last Done Comments DEPRESSION SCREENING 1995 SMOKING Hx and SMOKELESS TOBACCO SCREENING 11/15/1996 HEPATITIS C SCREENING 11/15/2001 HIV ONE-TIME SCREENING (18-6 5 YEARS) 11/15/2001 PAP SMEAR 05/04/2023 05/04/2020, 09/10/2014, 09/04/2014 MAMMOGRAM 2023 INFLUENZA VACCINE (#1) 2024 07/13/2023 COVID-19 VACCINE (2024-06 6 season) 2025 07/13/2023, 03/11/2021, 08/16/2020 Adult Td,Tdap Booster 07/12/2033 07/13/2023 , 04/01/2015 HEPATITIS A VACCINES Aged Out No long er eligible based on patient's age to complete this topic HIB VACCINES Aged Out No longer eligi ble based on patient's age to complete this topic MENINGOCOCCAL VACCINES (ACWY) Aged Out No longer eligible based on patient's age to complete this topic MENINGOCOCCAL VACCINES (B) Aged Out N o longer eligible based on patient's age to complete this topic PNEUMOCOCCAL VACCINES (0-49 years) Aged Out No longer eligible b ased on patient's age to complete this topic Medical Devices Not on file Procedures Procedure Name Priority Date/Time Associated Diagnosis Comments PAP TEST Routine 05/04/2020 12:00 AM EST from Last 3 Months or Most Recently Relevant to Health Maintenance Results * Pap Smear (05/04/2020 12:00 AM EST) 05/04/2020 05/05/2020 8:2 1 AM EST Narrative SEE NARRATIVE - 05/07/2020 1:50 [place] [address] Laborer High Density Press: Mary Murray MD COMMERCIAL DRAFTER Cytology Report FINAL DIAGNOSIS A. PAP SMEAR (SUREPATH) CE: SPECIMEN ADEQUACY: Satisfactory for evaluation; transformation zone present. INTERPRETATION: NEGATIVE FOR INTRAEPITHELIAL LESION OR MALIGNANCY. Electronically Signed Out By: GITA Jesus(ASCP) The Pap test is a screening test primarily for squamous cancers and precursors and has associated false-negative and false-positive results. New technologies such as liquid-based preparations may decrease but will not eliminate all false-negative results. Regular sampling and follow-up of unexplained clinical signs and symptoms are recommended to minimize false negative results. PROCEDURES/ADDENDA HPV Testing (Requested) Ordered Date: 05/05/2020 A. PAP SMEAR (SUREPATH) CE: Human Papilloma Virus Test Negative for high-risk human papillomavirus types 16, 18, 45 and the Other high risk probe set (Includes 31, 33, 35, 39, 51, 52, 56, 58, 59, 66, 68) by Benchling Onclarity HR-HPV analysis. Clinical correlation is advised. This HPV test was performed at [facility], [address] [place] [address]. This test has been FDA approved for SurePath cervical cytology specimens. The accuracy and precision of this test for all other specimen sources has been verified in the Cytopathology Laboratory of the [facility] and has not been cleared or approved by the U.S. Food and Drug Administration. Clinical correlation is advised. CLINICAL HISTORY Date of Last Menstrual Period: Not Provided Menstrual History: Unknown Other Clinical Conditions: Screening Pap SPECIMEN SOURCE A: PAP SMEAR (SUREPATH) CE Patient Name: DONALD HUBBARD : 1985 (Age: 34) Sex: F Institution: [facility] Location: [facility] Date of Collection: 05/04/2020 Date of Reported: 05/06/2020 11:10 Results to: Carmen Dwyer MSN, BS Carmen Dwyer BILINGUAL SOCIAL WORKER CYTOLOGY ORDERABLES Edited Res ult - Final SEE NARRATIVE from Last 3 Months or Most Recently Relevant to Health Maintenance Insurance [facility] [employer] [place] [address] [address] [employer] [facility] [employer] NTK HMO Care Teams Cooker Tender Relationship Specialty Start Date End Date Josue Phan MD [address] [place] [id number] PCP - General Family Medicine 07/17/23 Raoul Gama DO [address] [place] [address] [address] [place] [address] [email or web address] Historical LMR Provider 02/20/17 Carmen Dwyer NP [address] [place] [id number] Historical LMR Provider 02/20/17 Additional Source Comments The information contained in this document represents components of the legal health record. It is not the complete legal health record.[facility]
--- OUTSIDE RECORDS SUMMARY | 2025-02-11 13:27 | XMS_ITS | Encounter Summary ---
Author Organization [facility] Address [address] [facility] [address] [place] [address] Phone Care Team Providers Care Channeler Name Role Phone Raoul Gama DO Unavailable Lori De La Cruz FOLDER GLUER OPERATOR Unavailable [phone] Carmen Dwyer SENIOR RESERVATIONS AGENT Unavailable [phone] Ana Maria Keyes MD Unavailable [phone] Raoul Gama DO Primary Care Provider Josue Phan MD Primary Care Provi riccardo Reason for Referral * MRI/CAT Scan - Closed Specialty Diagnoses / Procedures Referred By Emmanuel t Referred To Contact Radiology Diagnoses Concussion without loss of consciousness, initial encounter Mild cognitive impairment Transient alteration of awareness Procedures MRI Brain Damian Lee MD, PhD Phone: tel: fax: [email or web address] Referral ID Status Reason Start Date Expiration Date Visits Re quested Visits Authorized [id number] Closed 05/25/2017 07/24/2017 1 1 Encounter Details Date Type Department Care Team (Late st Contact Info) Description 05/31/2017 Ancillary Orders Virtual Department [address] [place] [address] [phone] Damian Lee MD, PhD [address] [place], [place] [phone] [email or web address] Concussion without loss of consciousness, initial encounter; Mild cognitive impairment; Transient alteration of awareness Social History Tobacco Use Types Packs/Day Years Used Date Smoking Tobacco: Former Cigarettes Q uit: 05/18/2016 Smokeless Tobacco: Never Comments Unknown Sex and Gender Information Value Date Recorded Sex Assigned at Not on file Legal Sex Female 9:16 PM EDT Gender Identity Not on file Sexual Orientation Not on file Occupation Industry Job Start Date Job End Date Not on file Not on file Not on file Not on file documented as of this encounter Plan of Treatment Not on file documented as of this encounter Results * MRI BRAIN WITHOUT CONTRAST (06/05/2017 8:35 AM EST) Anatomical Region Laterality Modality Head Magnetic Resonan ce 06/05/2017 9:29 AM EST Impressions 06/05/2017 9:43 AM EST MRI of the brain appears within the range of normal. No source of the headaches is seen. POS - [id number] Edited by: Ingrid Amador on 06/05/2017 9:35 AM Narrative 06/05/2017 9:43 AM EST HISTORY: Concussion. Closed head injury. Mild cognitive impairment. Transient alteration of awareness. Altered mental status. COMPARISON: None. TECHNIQUE: Exam performed on a 1.5 Nessa high-field MRI scanner. Axial T1, T2, T2*, T2 FLAIR and diffusion-weighted imaging with ADC map, sagittal T1 sequences were obtained. FINDINGS: No abnormal intra or extra-axial blood or fluid collection, mass, or mass effect is identified. Sulci and ventricles within the range of normal. No white matter lesions of concern. No areas of abnormal susceptibility or restricted diffusion. Pituitary not enlarged. Cerebellar tonsils not ectopic. No gross orbital lesions. Paranasal sinuses clear. There appear to be preserved flow voids in the major intracranial arteries and veins. Procedure Note Ale Branch MD - 06/05/2017 HISTORY: Concussion. Closed head injury. Mild cognitive impairment.Transient alteration of awareness. Altered mental status. COMPARISON: None. TECHNIQUE: Exam performed on a 1.5 Nessa high-field MRI scanner. AxialT1, T2, T2*, T2 FLAIR and diffusion-weighted imaging with ADC map,sagittal T1 sequences were obtained. FINDINGS: No abnormal intra or extra-axial blood or fluid collection, mass, or masseffect is identified. Sulci and ventricles within the range of normal.No white matter lesions of concern. No areas of abnormal susceptibilityor restricted diffusion. Pituitary not enlarged. Cerebellar tonsils notectopic. No gross orbital lesions. Paranasal sinuses clear. Thereappear to be preserved flow voids in the major intracranial arteries andveins. IMPRESSION: MRI of the brain appears within the range of normal. No source of theheadaches is seen. POS - [id number] Edited by: Ingrid Amador on 06/05/2017 9:35 AM Damian Lee MD, PhD IMG MR HEAD/NECK Final Result documented in this encounter Visit Diagnoses Diagnosis Concussion without loss of consciousness, initial encounter Mild cognitive impairment Mild cognitive impairment, so stated Transient alteration of awareness Concussion without loss of consciousness, initial encounter Mild cognitive impairment Mild cognitive impairment, so stated Transient alteration of awareness documented in this encounter Additional Health Concerns Infection Onset Date Last Indicated Resolved Time CoV-Risk 04/06/2020 04/06/2020 04/20/2020 1:24 AM EST documented as of this encounter Care Teams Channeler Relationship Specialty Start Date End Date Raoul Gama DO [address] [facility] 7 [place] [address] PCP - General 05/11/17 07/16/23 Josue Phan MD [address] [place] [address] PCP - General Family Medicine 07/17/23 Raoul Gama DO [address] [facility] 7 [place] [address] Historical LMR Provider 02/20/17 Lori De La Cruz, RAND [address] [address] [email or web address] Historical LMR Provider 02/20/17 05/15/21 Carmen Dwyer NP [address] [place] [address] [email or web address] Historical LMR Provider 02/20/17 Ana Maria Keyes MD [address] [address] [email or web address] Historical LMR Provider 02/20/17 documented as of this encounter Additional Source Comments The information contained in this document represents components of the legal health record. It is not the complete legal health record.[facility]
--- OUTSIDE RECORDS SUMMARY | 2025-02-11 13:27 | XMS_ITS | Encounter Summary ---
Author Organization [facility] Address [address] [place] [address] Phone Care Team Providers Care Knurling Machine Operator Name Role Phone Raoul Gama DO Unavailable Lori De La Cruz POWER GRADER OPERATOR Unavailable Carmen Dwyer RUNNING INSTRUCTOR Unavailable [phone] Ana Maria Keyes MD Unavailable [phone] Raoul Gama DO Primary Care Provider Josue Phan MD Primary Care Provi riccardo Encounter Details Date Type Department Care Team (Late st Contact Info) Description 10/07/2019 Telephone [facility] [address] [place] [address] [place] [address] Raoul Gama DO [address] [facility], [address] [place] [address] [email or web address] Social History Tobacco Use Types Packs/Day Years Used Date Smoking Tobacco: Former Cigarettes 0.5 12.5 0 06/12/2006 - 12/06/2018 Smokeless Tobacco: Never Alcohol Use Standard Drinks/Week Comments Yes 14 (1 standard drink = 0.6 oz pu re alcohol) Comments No Sex and Gender Information Value [...] documented as of this encounter Care Teams Knurling Machine Operator Relationship Specialty Start Date End Date Raoul Gama DO [address] [place] [address] [address] [place] [address] [email or web address] PCP - General 05/11/17 07/16/23 Josue Phan MD [address] [place] [address] PCP - General Family Medicine 07/17/23 Raoul Gama DO [address] [place] [address] 7 [place] [address] [email or web address] Historical LMR Provider 02/20/17 Lori De La Cruz CNP [address] [place] [id number] Historical LMR Provider 02/20/17 05/15/21 Carmen Dwyer NP [address] [place] [address] Historical LMR Provider 02/20/17 Ana Maria Keyes MD [address] [place] [phone] [email or web address] Historical LMR Provider 02/20/17 documented as of this encounter Additional Source Comments The information contained in this document represents components of the legal health record. It is not the complete legal health record.[facility]
[2025-02-11 13:30] LABS: Hematocrit 40.7 % (37.0-47.0); Hemoglobin 14.2 g/dl (12.0-16.0); Imm Gran Abs Auto 0.02 X10*3/uL (0.00-0.03); Imm Gran Pct Auto 0.4 % (0.0-0.4); Lymphocytes Absolute Auto 2.0 X10*3/uL (1.2-4.9); Mean Corpuscular HGB Conc 34.9 g/dl (31.0-35.0); Mean Corpuscular Hemoglobin 32.6 pg (27.0-33.0); Mean Corpuscular Volume 93.3 fL (80.0-98.0); NRBC Abs Auto 0.000 X10*3/uL (0.0-0.012); NRBC Pct Auto 0.0 /100WBC (0.0-0.2); Platelet Count 223 X10*3/uL (160-400); Red Blood Count 4.36 X10*6/uL (4.20-5.50); White Blood Count 5.5 X10*3/uL (4.8-10.8)
[2025-02-11 14:14] LABS: Alanine Aminotransferase 32 U/L (0-31); Aspartate Amino Transferase 41 U/L (5-31); Estimated Glomerular Filt Rate > 60
[2025-02-14 22:13] LABS: Antibody to SS-A Antigen <1.0 NEG AI (<1.0 NEG); Antibody to SS-B Antigen <1.0 NEG AI (<1.0 NEG)
== END 2025-02-11 09:59 | disposition home or self-care (01) ==
LOC: HO.HKASLDS 09:58
PROVIDERS: PCP Nurse Practitioner Family; Visit Provider Internal Medicine Rheumatology
DX: Z51.81 Encounter for therapeutic drug level monitoring (principal); H04.123 Dry eye syndrome of bilateral lacrimal glands; I73.00 Raynaud's syndrome without gangrene; H16.9 Unspecified keratitis; Z79.899 Other long term (current) drug therapy
CPT/HCPCS: 36415; 82565; 84450; 84460; 85025; 85652; 86140; 86200; 86235; 86431